=== PATIENT | male | born 1945 ===

== ENCOUNTER → 2016-10-16 | Outpatient (CLI) | payer MEDICARE, OTHER ==
--- NOTE | 2016-10-17 09:30 | MRI ---
Study: MRI of the Left Hip. Indication: LEFT HIP PAIN Technique: Multiplanar, multi sequence MRI of the left hip was obtained without intravenous contrast. Comparison: None. FINDINGS: No acute fracture or osteonecrosis. Mild to moderate bilateral hip osteoarthritis with areas of grade 3 chondral thinning throughout both joints. Mild acetabular roof osteophyte formation. Tiny effusions. 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 Mild pubic symphysis osteoarthritis. Tendinosis right gluteus minimus/medius tendon insertions with mild right greater trochanteric bursal edema. No high-grade pelvic tendon tear. Prostatomegaly noted. Lower lumbar fusion construct partially visualized. IMPRESSION: [id number] bilateral hip osteoarthritis suspected with degenerative tearing of the labrum. No acute fracture or osteonecrosis. Prostatomegaly. Correlation with PSA and physical exam recommended. Additional findings as above. Electronically signed by: Adams Blandon MD 10/17/2016 9:29 AM CDT
== END ==
LOC: MRI 13:00
PROVIDERS: ATTEND General Practice
DX: M54.16 Radiculopathy, lumbar region (principal); M16.0 Bilateral primary osteoarthritis of hip; M25.552 Pain in left hip